=== PATIENT | female | born 1945 | race African-American/Black ===

== ENCOUNTER 2020-06-01 06:19 | Day surgery (SDC) | payer MEDICARE, OTHER ==
[2020-06-01] VITALS (7 sets, daily range): BP systolic 125–163; BP diastolic 67–113
[~2020-06-01] VITALS: Ht 152.4 cm; Wt 41.3 kg
[~2020-06-01 06:19] MED LIST: ATIVAN1 MG ORAL; IBUPROFEN600 M1 ORAL; PRILOSEC OTC20 MG PO; ROBAXIN500 MG ORAL; VICODIN ES 7.51 EACH ORAL
[2020-06-01] MEDS ORDERED: LR 1000ml 1,000 ML IVLG SCH (06:35)
--- NOTE | 2020-06-01 06:43 | Anethesia Preoperative Eval ---
Anesthesia Pre-op PMH/ROS General Date of Evaluation: Jun 01, 2020 Time of Evaluation: 06:37 Anesthesiologist: waqas ASA Score: ASA 4 Mallampati Score Class I : Soft palate, uvula, fauces, pillars visible Class II: Soft palate, uvula, fauces visible Class III: Soft palate, base of uvula visible Class IV: Only hard plate visible Mallampati Classification: Class II Surgeon: jessica Diagnosis: abdominal pain, vomiting, weight loss Surgical Procedure: egd/colonoscopy Anesthesia History: none Social History: current smoker Family History: no anesthesia problems Allergies: Coded Allergies: No Known Allergies (Unverified , 06/01/20) Medications: see eMAR Patient NPO?: Yes Past Medical History Pulmonary: Reports: other - pneumonia, collapsed left lung Gastrointestinal/Genitourinary: Reports: GERD Neurologic/Psychiatric: Reports: depression/anxiety HEENT: Reports: cataract (L), cataract (R) Hematology/Immune: Reports: other - non-hodgkin's lymphoma Musculoskeletal/Integumentary: Reports: other - degenerative bone disease PSxH Narrative: bilateral tubal ligation Anesthesia Pre-op Phys. Exam Physician Exam Last Vital Signs Date Time Temp Pulse Resp B/P (MAP) Pulse Ox O2 Delivery O2 Flow Rate FiO2 06/01/20 06:46 Room Air 06/01/20 06:42 97.3 79 16 125/77 95 Constitutional: NAD Neurologic: CN 2-12 intact Cardiovascular: RRR Respiratory: CTA Gastrointestinal: S/NT/ND Airway Exam Mallampati Score: Class II MO: limited Neck: flexible TMD: 2fb ROM: limited Teeth: missing Anesthesia Pre-op A/P Labs Microbiology Date/Time Source Procedure Growth Status 05/31/20 09:30 Nasopharynx SARS-CoV-2 RdRp Gene Assay - Final Complete Risk Assessment & Plan Assessment: asa4 Plan: mac Status Change Before Surgery: No Pre-Antibiotics Drug: Kathryn Momin MD Jun 01, 2020 06:43
[2020-06-01] MEDS ORDERED: Midazolam 2mg/2ml Inj IVP PRN (06:45)
[2020-06-01] MEDS ORDERED: DiphenhydrAMINE 50mg/ml Inj IVP PRN (06:45)
[2020-06-01] MEDS ORDERED: fentaNYL 100 mcg/2 mL IV PRN (06:45)
[2020-06-01] MEDS ORDERED: SKYRIZI75 MG/0.83 SQ (06:45)
[2020-06-01] MEDS ORDERED: Atropine Inj 1mg/10ml Syr IV PRN (06:45)
[2020-06-01] MEDS ORDERED: LR 1000ml ONE (08:00)
[2020-06-01] MEDS ORDERED: Lidocaine 1% MPF 10mg/ml 5ml ONE (08:00)
--- NOTE | 2020-06-01 08:24 | Pre-Procedure Note/Attestation ---
Pre-Procedure Note/Attestation Complete Prior to Procedure Planned Procedure: not applicable Procedure Narrative: esophagogastroduodenoscopy colon Indications for Procedure Pre-Operative Diagnosis: abd pain N/V Attestation I attest that I discussed the nature of the procedure; its benefits; risks and complications; and alternatives (and the risks and benefits of such alternatives ), prior to the procedure, with the patient (or the patient's legal contact center representative). I attest that, if there was a reasonable possibility of needing a blood transfusion, the patient (or the patient's legal contact center representative) was given the [facility] standardized written summary, pursuant to the [place] Blood Safety Act ([place] Health and Safety Code # 1645, as amended). I attest that I re-evaluated the patient just prior to the surgery and that there has been no change in the patient's H&P, except as documented below: Karthik Armijo MD Jun 01, 2020 08:24
--- NOTE | 2020-06-01 08:25 | Short Stay Surgery H&P ---
History of Present Illness History of Present Illness Chief Complaint see typed H&P HPI Sangeetha Tiana Bridges is a 75 year old female who was admitted on for Abdominal Pain, Vomiting,Weight Loss Patient History Allergies: Coded Allergies: No Known Allergies (Unverified , 06/01/20) Medication History Scheduled Lorazepam* (Ativan*), 1 MG ORAL NEEDED, (Reported) Risankizumab-Rzaa (Skyrizi), 75 MG SQ EVERY 3 MONTHS , (Reported) Scheduled PRN Ibuprofen* (Motrin*), 600 MG ORAL Q6H PRN for FOR PAIN, (Reported) Discontinued Medications Hydrocodone/Acetaminophen 7.5-750 (Vicodin Es 7.5-750), 1 TAB ORAL Q6H, ( Reported) Discontinued Reason: Pt stopped taking med Methocarbamol* (Robaxin*), 500 MG ORAL QID PRN, (Reported) Discontinued Reason: Pt stopped taking med Omeprazole Magnesium (Prilosec Otc), 20 MG PO, (Reported) Discontinued Reason: Pt stopped taking med Physical Exam Vital Signs Last Vital Signs Date Time Temp Pulse Resp B/P (MAP) Pulse Ox O2 Delivery O2 Flow Rate FiO2 06/01/20 06:46 Room Air 06/01/20 06:42 97.3 79 16 125/77 95 Plan Attestation Are the patient's medical conditions optimized for surgery? Karthik Armijo MD Jun 01, 2020 08:25
--- NOTE | 2020-06-01 09:11 | Endoscopy Procedure Note ---
Endoscopy Procedure Note General Indication for Procedure: N/V, pain Procedures Performed: EGD, colonoscopy Operative Findings/Diagnosis: antrum erosions, diverticulosis, IC valve polyp x 1, rectal polyp x 2 Anesthesia Anesthesiologist: rosales valle Anesthesia: MAC Medications Medication Given: see anesthesia record Inserted Devices Implant(s) used?: No GI Core Measures 50 yrs or older w/o bx or poly: Not Applicable 10yrs. F/U recommended: Not Applicable Karthik Armijo MD Jun 01, 2020 09:11
--- NOTE | 2020-06-01 09:12 | Pre-Procedure Note/Attestation ---
Pre-Procedure Note/Attestation Complete Prior to Procedure Planned Procedure: not applicable Procedure Narrative: esophagogastroduodenoscopy colon Indications for Procedure Pre-Operative Diagnosis: abd pain N/V Attestation I attest that I discussed the nature of the procedure; its benefits; risks and complications; and alternatives (and the risks and benefits of such alternatives ), prior to the procedure, with the patient (or the patient's legal b2b sales representative). I attest that, if there was a reasonable possibility of needing a blood transfusion, the patient (or the patient's legal b2b sales representative) was given the [facility] standardized written summary, pursuant to the [place] Blood Safety Act ([place] Health and Safety Code # 1645, as amended). I attest that I re-evaluated the patient just prior to the surgery and that there has been no change in the patient's H&P, except as documented below: Karthik Armijo MD Jun 01, 2020 09:12
--- NOTE | 2020-06-01 09:32 | Immediate Post-Op Evaluation ---
Immediate Post-Op Evalulation Immediate Post-Op Evalulation Procedure: egd/colonoscopy w/bx Date of Evaluation: Jun 01, 2020 Time of Evaluation: 09:26 IV Fluids: 600ml lr Blood Products: none Estimated Blood Loss: negligible Blood Pressure Systolic: 168 Blood Pressure Diastolic: 78 Pulse Rate: 60 Respiratory Rate: 18 O2 Sat by Pulse Oximetry: 100 Temperature (Fahrenheit): 99.6 Pain Score (1-10): 0 Nausea: No Vomiting: No Complications none Patient Status: awake, reacts, patent Hydration Status: adequate Drug: Kathryn Momin MD Jun 01, 2020 09:32
--- NOTE | 2020-06-01 09:37 | 48 Hour Post Anesthesia Eval ---
Post Anesthesia Evaluation Procedure: egd/colonoscopy w/bx Date of Evaluation: Jun 01, 2020 Time of Evaluation: 09:36 Blood Pressure Systolic: 162 0: 77 Pulse Rate: 75 Respiratory Rate: 18 Temperature (Fahrenheit): 97.5 - repeat temporal scan 97.5@0936 O2 Sat by Pulse Oximetry: 97 Airway: patent Nausea: No Vomiting: No Pain Intensity: 0 Hydration Status: adequate Cardiopulmonary Status: stable Mental Status/LOC: patient returned to baseline Post-Anesthesia Complications: none Follow-up care needed: N/A Kathryn Su MD Jun 01, 2020 09:37
--- NOTE | 2020-06-05 10:00 | Operative Note - Dictated ---
DATE OF OPERATION: 06/01/2020 GASTROENTEROLOGY PROCEDURE REPORT PROCEDURE: Upper gastrointestinal endoscopy with biopsy as well as colonoscopy with biopsy. SURGEON: Karthik Armijo MD. ANESTHESIA: Please see the separate anesthesiologist notes for details. PRE-ENDOSCOPIC DIAGNOSIS: Weight loss, nausea, and vomiting. POST-ENDOSCOPIC DIAGNOSES: 1. Mild erosive gastritis, status post biopsy. 2. Status post random biopsies of normal duodenum. 3. [id number] left-sided diverticulosis. 4. Normal terminal ileum for about 10 cm. 5. Diminutive polyps in the IC valve as well as the rectum, status post biopsy removal. 6. No evidence of malignancy identified. PROCEDURE IN DETAIL: The procedure, its risks, indications, alternatives, and possible complications were explained to the patient and informed consent was obtained. The patient was then sedated in the left lateral decubitus position and a diagnostic upper endoscope was introduced through oropharynx and advanced to the duodenum without difficulty. The endoscope was then gradually withdrawn and mucosa examined carefully. Examination of the upper gastrointestinal mucosa revealed mild erosive gastritis. Biopsies of the antrum as well as the normal duodenum were sent to pathology for review. Thereafter, rectal exam was done and colonoscope was introduced into the rectum and advanced to 10 cm into the terminal ileum. The colonoscope was then gradually withdrawn and mucosa examined carefully. Examination of the terminal ileal mucosa did not reveal any abnormalities. Examination of the colonic mucosa revealed a diminutive polyp in the ileocecal valve, which was removed with the biopsy forceps. There were two diminutive polyps in the rectum, which were also removed with the biopsy forceps. Examination of the colonic mucosa revealed left-sided [id number] diverticulosis. There were, however, no malignancy identified. The colonoscope was removed and the patient was sent to Recovery in good condition. COMPLICATIONS: None. RECOMMENDATIONS: 1. Follow up biopsy results. 2. High fiber diet. 3. Outpatient followup. Thank you for asking me to participate in the care of this patient. Karthik Armioj M.D. DR: EZEQUIEL JOB#: [id number] CC: Jose Roberto Gonsalves M.D.
== END 2020-06-01 10:20 | disposition home or self-care (01) ==
LOC: GAS 06:19
DX: R63.4 Abnormal weight loss (principal); K29.70 Gastritis, unspecified, without bleeding; K57.90 Diverticulosis of intestine, part unspecified, without perforation or abscess without bleeding; K63.5 Polyp of colon; R11.2 Nausea with vomiting, unspecified; K21.9 Gastro-esophageal reflux disease without esophagitis; F32.9 Major depressive disorder, single episode, unspecified; F41.9 Anxiety disorder, unspecified; Z85.72 Personal history of non-Hodgkin lymphomas; M19.90 Unspecified osteoarthritis, unspecified site; F17.200 Nicotine dependence, unspecified, uncomplicated
CPT/HCPCS: 43239; 45380; J0360; J2704; J7120; U0002